=== PATIENT | female | born 1995 | race Two or more races ===

== ENCOUNTER 2022-01-31 12:00 | Inpatient (IN) | payer OTHER ==
[~2022-01-31] VITALS: Ht 162.6 cm; Wt 84.4 kg
[2022-02-01] MEDS ORDERED: PRENATAL CAPLE1 EAC1 PO (10:07)
== END 2022-02-03 17:03 | disposition home or self-care (01) | DRG 807 ==
LOC: LDR 02-01 08:34 → OB/GYN 02-01 10:05
PROVIDERS: ADMIT Specialist; ATTEND Specialist
PROC: 4A1HXCZ Monitoring of Products of Conception, Cardiac Rate, External Approach (ICD-10-PCS; 2022-02-01)
PROC: 10E0XZZ Delivery of Products of Conception, External Approach (ICD-10-PCS; principal; 2022-02-02)
PROC: 0KQM0ZZ Repair Perineum Muscle, Open Approach (ICD-10-PCS; 2022-02-02)
DX: O70.1 Second degree perineal laceration during delivery (principal); Z37.0 Single live birth; Z3A.38 38 weeks gestation of pregnancy; Z20.822 Contact with and (suspected) exposure to COVID-19